=== PATIENT | male | born 1945 | race Caucasian/White ===

== ENCOUNTER → 2019-01-23 | Outpatient (CLI) | payer MEDICARE, OTHER ==
--- NOTE | 2019-01-23 16:01 | CARDNUC ---
[place] [address] CARDIAC NUCLEAR IMAGING REPORT Name: GAYATHRI SMITH Room: [facility]#: [id number] Admission: 01/23/19 Attend Phys: Matthew Marin, Discharge: Date of : 43 Date of Service: 01/23/19 1601 Report #: [id number] THIS REPORT FOR: //name// APPROVED REPORT Study performed: 01/23/2019 08:30:00 Indication: Atrial Fibrillation, Fatigue Patient Location: Out-Patient Stress Tech: Patricia Hugo Stress Nurse: Sheri Bedoya RN Ht: 6 ft 0 in Wt: 185 lbs BSA: 2.06 m2 BMI: 25.08 Medical History Medical History: hyperlipidemia, a fib Medications: warfarin Allergies: sulfa Cardiac Risk Factors: age, hyperlipidemia Exercise History: Physically active Resting Data Rest SPECT myocardial perfusion imaging was performed in supine position 30 minutes following the intravenous injection of 11.5 mCi of Tc-99m Sestamibi. Time of rest injection: 08:50 The images were gated to evaluate regional wall motion and calculate left ventricular ejection fraction. Administration Route: IV Administration Site: Right Wrist Pharmacologic Stress Pharmacologic stress test was performed by injecting Regadenoson 0.4 mg IV push over 10-15 seconds immediately followed by the intravenous injection of 34.9 mCi of Tc-99m Sestamibi. Time of stress injection: 10:50 Administration Route: IV Administration Site: Right Wrist Heart Rate at time of stress injection: 96 bpm. Gated Stress SPECT was performed 45 minutes after stress injection. The images were gated to evaluate regional wall motion and calculate left ventricular ejection fraction. [place] [address] CARDIAC NUCLEAR IMAGING REPORT Name: GAYATHRI SMITH Room: [facility]#: [id number] Admission: 01/23/19 Attend Phys: Matthew Marin, Discharge: Date of : 43 Date of Service: 01/23/19 1601 Report #: [id number] Stress Test Details Stress Test: Pharmacologic stress testing performed using 0.4 mg of regadenoson per 5 mL given IV over 10 seconds. Reason for pharmacologic stress test: a fib. HR Max Heart Rate (APMHR): 146 bpm Resting HR: 78 bpm Target HR (85% APMHR): 124 bpm Max HR Achieved: 96 bpm % of APMHR: 65 Recovery HR: 78 bpm BP Resting BP: 144/93 mmHg Max BP: 158/61 mmHg Recovery BP: 158/61 mmHg ECG Resting ECG: Sinus Rhythm Stress ECG: Sinus Rhythm ST Change: None Arrhythmia: None Recovery ECG: Sinus Rhythm Recovery ST Change: None Recovery Arrhythmia: None Clinical Reason for Termination: Completed protocol Exercise duration: 0 min sec Exercise capacity: 1 METs The patient tolerated Lexiscan infusion without significant cardiac. Stress ECG Conclusion Baseline 12-lead EKG showed sinus rhythm with no significant ST segment or T-wave abnormality. EKGs obtained during and post Lexiscan infusion showed sinus rhythm with no significant ST segment changes when compared to baseline. There were no stress-induced arrhythmias. Study Quality Study: Good Artifact: Mild Diaphragmatic artifact Study Data At rest, the left ventricular ejection fraction was 62%.. Post stress, the left ventricular ejection was 64%[place] [address] CARDIAC NUCLEAR IMAGING REPORT Name: GAYATHRI SMITH Room: [facility]#: [id number] Admission: 01/23/19 Attend Phys: Matthew Marin, Discharge: Date of : 43 Date of Service: 01/23/19 1601 Report #: [id number] TID = 1.01. Perfusion There is very mild photopenia of the inferior wall on images obtained in the supine position at rest and post Lexiscan stress that resolved with prone imaging suggesting documented relation artifact. No other significant fixed or reversible defects are identified. Wall Motion Normal left ventricular wall motion. Nuclear Conclusion ECG Findings: negative for ischemia Clinical Findings: negative for ischemia Nuclear Findings: negative for ischemia Exercise Capacity: not assessed Left Ventricular Function: normal Risk Study: low Myocardial perfusion images showed no defect to suggest infarct or ischemia. Left ventricular systolic function appears normal on gated studies. This is a low risk study. <Conclusion> Baseline 12-lead EKG showed sinus rhythm with no significant ST segment or T-wave abnormality. EKGs obtained during and post Lexiscan infusion showed sinus rhythm with no significant ST segment changes when compared to baseline. There were no stress-induced arrhythmias. <ELECTRONICALLY SIGNED> By: Davin Drake MD, FACC 01/23/19 1601 160 160 Davin Drake MD, FACC /INF
== END ==
LOC: M.NUC 01-07 16:38 → M.CRD 01-20 14:00 → M.NUC 08:00 → M.CRD 09:00 → M.NUC 13:00
DX: I48.91 Unspecified atrial fibrillation (principal); R93.1 Abnormal findings on diagnostic imaging of heart and coronary circulation; E78.5 Hyperlipidemia, unspecified; Z79.01 Long term (current) use of anticoagulants; Z88.0 Allergy status to penicillin